=== PATIENT | male | born 1995 | race Asian ===

== ENCOUNTER 2017-11-28 03:26 | Emergency (ER) | payer OTHER ==
[2017-11-28] MEDS: ACETAMINOPHEN 325 MG TAB PO (04:18)
[2017-11-28] MEDS: IBUPROFEN 600 MG TAB PO (04:18)
[2017-11-28] MEDS: KETOROLAC 30 MG/ML VIAL (J1885) IV (04:18)
[2017-11-28] MEDS: NS 1,000 ML IV (04:19)
== END 2017-11-28 06:36 | disposition home or self-care (01) ==
LOC: M ED 03:26
DX: B34.9 Viral infection, unspecified (principal)
CPT/HCPCS: J1885

== ENCOUNTER 2017-11-30 10:28 | Emergency (ER) | payer OTHER ==
[2017-11-30] MEDS: NS 1,000 ML IV (11:33)
[2017-11-30] MEDS: ONDANSETRON 4MG/2ML VIAL (J2405) IV (11:34)
[2017-11-30] MEDS: MORPHINE 4 MG/ML 1ML VIAL/SYRINGE (J2270) IV (11:34)
[2017-11-30 11:43] LABS: BASO % 0.2 % (0.0-1.0); EOS % 0.7 % (0.0-3.0); HEMATOCRIT 44.7 % (42.0-52.0); HEMOGLOBIN 15.1 g/dl (13.5-17.5); IMMATURE GRANULOCYTE % 0.4 % (0-3.0); LYMPH # 0.4 10^3/uL (1.5-6.5); LYMPH % 8.3 % (24.0-44.0); MEAN CORPUSCULAR HEMOGLOBIN 29.3 pg (27.0-33.0); MEAN CORPUSCULAR HGB CONC 33.8 g/dl (32.0-36.5); MEAN CORPUSCULAR VOLUME 86.8 fl (80.0-96.0); MONO # 0.3 10^3/uL (0.0-0.8); MONO % 7.6 % (0.0-5.0); NEUTROPHILS # 3.7 10^3/uL (1.8-7.7); NEUTROPHILS % 82.8 % (36.0-66.0); PLATELET COUNT, AUTOMATED 110 10^3/uL (150-450); RED BLOOD COUNT 5.15 10^6/uL (4.30-6.10); RED CELL DISTRIBUTION WIDTH 11.6 % (11.5-14.5); WHITE BLOOD COUNT 4.5 10^3/uL (4.0-10.0)
[2017-11-30 12:21] LABS: ALBUMIN 3.7 GM/DL (3.2-5.2); ALBUMIN/GLOBULIN RATIO 0.97 (1.00-1.93); ALKALINE PHOSPHATASE 183 U/L (45-117); ALT/SGPT 131 U/L (12-78); AST/SGOT 64 U/L (7-37); BILIRUBIN,DIRECT 1.5 MG/DL (0.0-0.2); BILIRUBIN,TOTAL 2.1 MG/DL (0.2-1.0); LIPASE 341 U/L (73-393); TOTAL PROTEIN 7.5 GM/DL (6.4-8.2)
[2017-11-30 12:59] LABS: ANION GAP 8 MEQ/L (8-16); BLOOD UREA NITROGEN 8 MG/DL (7-18); CALCIUM LEVEL 8.9 MG/DL (8.5-10.1); CARBON DIOXIDE LEVEL 27 MEQ/L (21-32); CHLORIDE LEVEL 105 MEQ/L (98-107); CREATININE FOR GFR 0.84 MG/DL (0.70-1.30); GLUCOSE, FASTING 95 MG/DL (70-100); SODIUM LEVEL 140 MEQ/L (136-145)
[2017-11-30] MEDS ORDERED: ISOVUE-370 76% 100ML VIAL (Q9967) As Ordered (13:10)
[2017-11-30 15:09] LABS: KETONE, URINE AUTO RFX 1+ mg/dL (NEGATIVE); LEUKOCYTE ESTERASE UR AUTO RFX NEGATIVE (NEGATIVE); NITRITE, URINE AUTO RFX NEGATIVE (NEGATIVE); RBC, URINE AUTO RFX 1 /HPF (0-3); SPECIFIC GRAVITY UR AUTO RFX 1.035 (1.002-1.035); SQUAM EPITHELIAL CELL UR AURFX 0 /HPF (0-6); WBC, URINE AUTO RFX 2 /HPF (0-3)
[2017-11-30] MEDS: KETOROLAC 30 MG/ML VIAL (J1885) IV (15:09)
[2017-12-03 11:10] LABS: HEPATITIS B SURFACE ANTIGEN NEGATIVE (NEGATIVE)
[2017-12-03 11:38] LABS: HEPATITIS C VIRUS ABY INDEX 0.1 INDEX (<0.8)
[2017-12-03 11:38] LABS: HEPATITIS B CORE ANTIBODY IGM NEGATIVE (NEGATIVE)
[2017-12-03 11:40] LABS: HEPATITIS A ANTIBODY IGM NEGATIVE (NEGATIVE)
== END 2017-11-30 16:30 | disposition home or self-care (01) ==
LOC: M ED 10:28
DX: B34.9 Viral infection, unspecified (principal); R79.89 Other specified abnormal findings of blood chemistry; R11.10 Vomiting, unspecified; R93.5 Abnormal findings on diagnostic imaging of other abdominal regions, including retroperitoneum; K82.4 Cholesterolosis of gallbladder
CPT/HCPCS: J2270

== ENCOUNTER 2017-12-01 16:51 | Emergency (ER) | payer OTHER ==
[2017-12-01 18:26] LABS: BASO % 0.1 % (0.0-1.0); EOS % 0.3 % (0.0-3.0); HEMATOCRIT 45.6 % (42.0-52.0); HEMOGLOBIN 15.6 g/dl (13.5-17.5); IMMATURE GRANULOCYTE % 0.1 % (0-3.0); LYMPH # 0.8 10^3/uL (1.5-6.5); LYMPH % 11.6 % (24.0-44.0); MEAN CORPUSCULAR HEMOGLOBIN 29.2 pg (27.0-33.0); MEAN CORPUSCULAR HGB CONC 34.2 g/dl (32.0-36.5); MEAN CORPUSCULAR VOLUME 85.2 fl (80.0-96.0); MONO # 0.6 10^3/uL (0.0-0.8); MONO % 8.3 % (0.0-5.0); NEUTROPHILS # 5.3 10^3/uL (1.8-7.7); NEUTROPHILS % 79.6 % (36.0-66.0); PLATELET COUNT, AUTOMATED 152 10^3/uL (150-450); RED BLOOD COUNT 5.35 10^6/uL (4.30-6.10); RED CELL DISTRIBUTION WIDTH 11.8 % (11.5-14.5); WHITE BLOOD COUNT 6.7 10^3/uL (4.0-10.0)
[2017-12-01] MEDS: NS 1,000 ML IV (18:43)
[2017-12-01] MEDS: HYDROMORPHONE HCL 0.5 MG/ 0.5 ML SYRINGE (J1170 PER 1) IV (18:44)
[2017-12-01] MEDS: METOCLOPRAMIDE INJ 10MG/2ML VIAL (J2765) IV (18:45)
[2017-12-01 18:48] LABS: ALBUMIN/GLOBULIN RATIO 1.03 (1.00-1.93); ALKALINE PHOSPHATASE 217 U/L (45-117); ALT/SGPT 153 U/L (12-78); AMYLASE 51 U/L (25-115); ANION GAP 9 MEQ/L (8-16); AST/SGOT 92 U/L (7-37); BLOOD UREA NITROGEN 9 MG/DL (7-18); C REACTIVE PROTEIN QUANTITATIV 8.74 MG/DL (0.00-0.30); CALCIUM LEVEL 9.3 MG/DL (8.5-10.1); CARBON DIOXIDE LEVEL 25 MEQ/L (21-32); CHLORIDE LEVEL 104 MEQ/L (98-107); CREATININE FOR GFR 1.09 MG/DL (0.70-1.30); GAMMA GLUTAMYLTRANSPEPTIDASE 533 U/L (15-85); GLUCOSE, FASTING 117 MG/DL (70-100); LIPASE 236 U/L (73-393); POTASSIUM SERUM 3.7 MEQ/L (3.5-5.1); SODIUM LEVEL 138 MEQ/L (136-145); TOTAL PROTEIN 7.9 GM/DL (6.4-8.2)
[2017-12-01] MEDS: DICYCLOMINE INJ 20MG/2ML (J0500) IM (18:48)
[2017-12-01] MEDS: NORCO 5/325MG TABLET (BULK FOR ED) PO (21:18)
[2017-12-04 14:12] LABS: EBV AB TO NUCLEAR ANTIGEN >600.0 U/mL (0.0-17.9)
[2017-12-04 14:12] LABS: EBV VIRAL CAPSID AG IgM <36.0 U/mL (0.0-35.9)
== END 2017-12-01 21:31 | disposition home or self-care (01) ==
LOC: M ED 16:51
DX: R10.10 Upper abdominal pain, unspecified (principal); R74.8 Abnormal levels of other serum enzymes; K82.4 Cholesterolosis of gallbladder; Z87.19 Personal history of other diseases of the digestive system; Z87.891 Personal history of nicotine dependence
CPT/HCPCS: J0500